=== PATIENT | female | born 1940 | race Caucasian/White ===

== ENCOUNTER 2021-02-05 13:03 | Emergency (ER) | payer OTHER, SELFPAY ==
--- NOTE | ~2021-02-05 | CT_ITS ---
EXAMINATION: CT cervical spine wo con DATE: 02/05/2021 13:48 INDICATION: Fall. Patient struck nose. Neck pain. TECHNIQUE: Computed tomography (CT) of the cervical spine was performed without intravenous contrast. Automated exposure control and iterative reconstruction technique were employed. Exam dose: 390.43 mGy-cm total exam DLP. COMPARISON: 02/04/2009 MRI cervical spine FINDINGS: The mastoid air cells are normally developed and aerated. There is mild reversal of lower cervical curvature. C1 and C2 are normally aligned and the odontoid process is intact.. No fracture or dislocation or loc ked facet. There is minimal anterolisthesis at C3-4 and C4-5. There is mild degenerative disc disease at C3-4. There is severe degenerative disease at C4-5, C5-6 and C6-7. Particularly prominent posterior spurrin g is noted at C5-6. Uncovertebral joint spurring is noted, particular C4-5 and C5-6. There is degenerative changes of the apophyseal joints, particularly in the upper and mid cervical ar ea. IMPRESSION: Extensive degenerative changes; no fracture or dislocation or locked facet is evident Reviewed, dictated and finalized at [facility]. Reviewed, dictated and finalized at location [facility]. IMPRESSION: Extensive degenerative changes; no fracture or dislocation or korina d facet is evident
--- NOTE | ~2021-02-05 | XR_ITS ---
XR wrist RT min 3V DATE: 02/05/2021 14:05 INDICATION: Fall. Right wrist pain, bruising TECHNIQUE: 4 views COMPARISON: None FINDINGS: Diffuse osteopenia. There is osteoarthritic change at the triscaphe and particularly the first carpometacarpal joint. No fracture or dislocation, periosteal reaction or bone destruction. IMPRESSION: Osteopenia Osteoarthritis No fracture or dislocation of the right wrist is detected Reviewed, dictated and finalized at location [facility].
--- NOTE | ~2021-02-05 | CT_ITS ---
EXAMINATION: CT brain wo con DATE: 02/05/2021 13:48 INDICATION: Patient fell and struck nose. Neck pain. Patient on blood thinners. TECHNIQUE: Computed tomography (CT) of the head was performed without intravenous contrast. The mA wa s adjusted according to patient size. Iterative reconstruction technique was employed. Exam dose: 60 5.33 mGy-cm total exam DLP. COMPARISON: 01/18/2009 MRI brain/brainstem FINDINGS: Bilateral carotid siphon internal carotid artery calcifications as well as prominent left v ertebral artery calcification. There is nonspecific diminished attenuation of the subcortical and periventricular cerebral white mat ter; diffusion diagnosis includes chronic small vessel ischemic changes as well as multiple sclerosis is reportedly present in this patient by clinical history. No intracranial mass lesion or hemorrhage or recent cerebrovascular accident is evident. No midline s hift or mass effect effect. No subdural or epidural hematoma is evident. No fracture or bone destruction of the cranial vault. The mastoid air cells and included paranasal si nuses are normally developed and aerated. IMPRESSION: No acute intracranial finding or skull fracture Cerebral atherosclerosis and chronic white matter changes Reviewed, dictated and finalized at [facility]. Reviewed, dictated and finalized at location [facility].
--- NOTE | ~2021-02-05 | XR_ITS ---
XR knee LT min 4V DATE: 02/05/2021 14:05 INDICATION: Fall. Generalized left knee pain, limited range of motion TECHNIQUE: 4 views including crosstable lateral COMPARISON: None FINDINGS: Diffuse osteopenia. Moderately severe loss of height at medial compartment joint space with mild periarticular spurring a t the medial and patellofemoral compartments. No fracture or dislocation, periosteal reaction or bone destruction. No radiopaque intra-articular lo ose body or chondrocalcinosis is evident. IMPRESSION: Osteopenia Osteoarthritis involving the medial and to a lesser extent patellofemoral compartments Reviewed, dictated and finalized at location [facility]. IMPRESSION: Osteopenia Osteoarthritis involving the medial and to a lesser extent patellofemoral joanne rtments
--- NOTE | ~2021-02-05 | XR_ITS ---
XR elbow RT min 3V DATE: 02/05/2021 14:04 INDICATION: Fall. Generalized right elbow pain, limited range of motion TECHNIQUE: 4 views COMPARISON: None FINDINGS: There is a linear intra-articular virtually nondisplaced radial head fracture. No other fra cture or dislocation is evident. Mild hemarthrosis. IMPRESSION: Radial head fracture Reviewed, dictated and finalized at location A. IMPRESSION: Radial head fracture
[2021-02-05 13:04] VITALS: BP 131/67; PULSE 73; RESP 16; TEMP 36.5; O2SAT 97
--- NOTE | 2021-02-05 15:09 | ED.FALL ---
HPI - Fall General Chief Complaint: Fall Stated Complaint: fall Time Seen by Provider: 02/05/21 13:07 Source: patient and family Mode of arrival: ambulatory History of Present Illness HPI Narrative: 80-year-old with a history of CAD on blood thinners here with complaints of fall. Patient states that she missed a step and fell face forward complains of a laceration to her nose, right elbow pain and left hand pain. She denies loss of consciousness. She denied any chest pain or shortness of breath or palpitation prior to the fall ,no history of loss of consciousness. MD complaint: fall Fall from: standing Fall witnessed: yes, by family Place fall occurred: home Loss of consciousness: none Symptoms prior to fall: none Context: tripped/slipped Location of injury - extremities: Left: hand and Right: elbow Severity: moderate Quality: aching Associated symptoms (after fall): neck pain Related Data Allergies Allergy/AdvReac Type Severity Reaction Status Date / Time codeine Allergy Unknown Unknown Verified 02/05/21 13:22 Sulfa (Sulfonamide Allergy Unknown Unknown Verified 02/05/21 13:22 Antibiotics) sulfanilamide Allergy Unknown Unknown Verified 02/05/21 13:22 Review of Systems Review of Systems: All systems reviewed & are unremarkable except as noted in HPI and below Constitutional: Constitutional: Reports no additional constitutional complaints Eyes: Eyes: Reports no additional eye complaints ENT: Reports as per HPI Cardiovascular: Cardiovascular: Reports no additional cardiovascular complaints Respiratory: Respiratory: Reports no additional respiratory complaints Gastrointestinal: Gastrointestinal: Reports no additional gastrointestinal complaints Musculoskeletal: Musculoskeletal: Reports as per HPI Integumentary/Breasts: Skin/Breast: Reports system reviewed and no additional complaints, except as docu Neurologic: Reports system reviewed and no additional complaints, except as documented PMFSH Family History Family History (Updated 06/04/14 @ 07:13 by DOCTOR UNKNOWN) Father Family history of congestive heart failure Other Depression Family history of alcoholism Family history of cardiovascular disease Family history of chronic obstructive pulmonary disease Family history of malignant neoplasm Hypertension Social History Social History Smoking status: Never smoker Smoking end date: 10/08/1967 Alcohol intake: never Gender identity (if verbalized by the patient): Female Exam Narrative: Exam Narrative: GENERAL: Well-appearing, well-nourished, and in no acute distress. HEAD: Normocephalic, atraumatic. EYES: PERRLA and EOMI. ENT: Nares clear, no rhinorrhea or epistaxis. Mucous membranes moist.has a skin avulsion the nose NECK: Supple. CHEST: Clear to auscultation. No respiratory distress. HEART: Regular rate and rhythm. No murmur heard. Normal peripheral pulses. ABDOMEN: Soft, nontender, nondistended, normal active bowel sounds. EXTREMITIES:pain in the right elbow and left hand has abrasions . No edema. SKIN: Warm, dry, no rash. NEURO: No focal deficits. Alert and oriented x3. PSYCH: Normal mood and affect. Course Course Emergency Course: Inform patient about her radiological findings. Patient states that she lives in [place] and would like to follow-up with her orthopedic doctor in [place]. However I have given on-call orthopedic doctor's name here for follow-up in case if she is unable to follow-up with her doctor. Advised fall precautions. Take pain medications as prescribed. Vital Signs Vital signs: Vital Signs Temperature 36.5 C 02/05/21 13:04 Pulse Rate 73 02/05/21 13:04 Respiratory Rate 16 02/05/21 13:04 Blood Pressure 131/67 02/05/21 13:04 Pulse Oximetry 97 02/05/21 13:04 Temperature 36.5 C 02/05/21 13:04 Pulse Rate 73 02/05/21 13:04 Respiratory Rate 16 02/05/21 13:04 Blood Pres
[2021-02-05] MEDS: HYDROcodone/acetaminophen (*CRX) 10-325 MG TABLET 1 TAB PO (15:53)
[2021-02-05 16:15] VITALS: BP 132/82; PULSE 80; RESP 20; O2SAT 99
== END 2021-02-05 16:17 | disposition home or self-care (01) ==
PROVIDERS: Emergency Provider Family Medicine; PCP Family Medicine
DX: S01.21XA Laceration without foreign body of nose, initial encounter (principal); S52.124A Nondisplaced fracture of head of right radius, initial encounter for closed fracture; S60.222A Contusion of left hand, initial encounter; M19.031 Primary osteoarthritis, right wrist; M85.88 Other specified disorders of bone density and structure, other site; M17.12 Unilateral primary osteoarthritis, left knee; I67.2 Cerebral atherosclerosis; W10.9XXA Fall (on) (from) unspecified stairs and steps, initial encounter
CPT/HCPCS: 29105; 70450; 72125; 73080; 73110; 73564; 99284; A4565; A9270

== ENCOUNTER 2021-08-18 09:45 | Outpatient (CLI) | payer OTHER, SELFPAY ==
[2021-08-18 11:12] LABS: Basophils Absolute Auto 0.1 K/mm3 (0.0-0.1); Basophils Percent Auto 0.8 % (0.2-1.2); Eosinophils Absolute Auto 0.2 K/mm3 (0-0.3); Eosinophils Percent Auto 2.5 % (0-4.4); Hematocrit 39.9 % (37.0-47.0); Immature Granulocyte Absolute 0.06 K/mm3 (0.00-0.031); Immature Granulocyte Percent A 0.8 % (0-0.5); Lymphocytes Absolute Auto 1.57 K/mm3 (0.9-3.2); Lymphocytes Percent Auto 21.5 % (18.3-44.2); Mean Corpuscular HGB Conc 32.6 g/dl (32-36); Mean Corpuscular Hemoglobin 28.2 pg (26-34); Mean Corpuscular Volume 86.6 fl (80-100); Mean Platelet Volume 9.9 fl (7.4-10.4); Monocytes Absolute Auto 0.5 K/mm3 (0.1-0.6); Monocytes Percent Auto 7.3 % (2.6-8.5); Neutrophils Absolute Auto 4.9 K/mm3 (1.3-6.7); Neutrophils Percent Auto 67.1 % (45.5-73.1); Platelet Count Result 189 k/mm3 (150-375); Red Blood Count 4.61 M/mm3 (4.2-5.4); Red Cell Distribution Width 13.5 % (11.5-14.5); White Blood Count 7.3 K/mm3 (4.5-10.0)
[2021-08-18 11:23] LABS: INR 1.2; Prothrombin Time 15.1 Seconds (11.1-14.7)
[2021-08-18 11:24] LABS: Partial Thromboplastin Time 51.9 SECONDS (22.3-36.8)
[2021-08-18 11:31] LABS: Alanine Aminotransferase 23 U/L (4-35); Albumin Level 4.6 g/dL (3.5-5.1); Alkaline Phosphatase 97 U/L (38-126); Anion Gap 8 mmol/L (8-16); Aspartate Amino Transferase 34 U/L (14-36); Bilirubin,Total 0.4 mg/dL (0.2-1.3); Blood Urea Nitrogen 19 mg/dL (7-17); Calcium 9.4 mg/dL (8.4-10.2); Carbon Dioxide 31 mmol/L (22-30); Chloride 101 mmol/L (98-107); Estimated Glomerular Filt Rate > 60; Glucose 101 mg/dL (65-110); Potassium 4.2 mmol/L (3.4-5.0); Sodium 140 mmol/L (137-145)
== END 2021-08-18 09:46 | disposition home or self-care (01) ==
LOC: ANHSURGERY 09:48
PROVIDERS: PCP Family Medicine; Visit Provider Urology
DX: N81.10 Cystocele, unspecified (principal); Z01.818 Encounter for other preprocedural examination
CPT/HCPCS: 36415; 80053; 85025; 85610; 85730; 86850; 86900; 86901; 87086

== ENCOUNTER 2021-08-29 00:23 | Day surgery (SDC) | payer OTHER, SELFPAY ==
[2021-08-18 09:55] VITALS: BMI 33.1
--- NOTE | 2021-08-18 10:36 | PC.NURSE ---
Report to the Outpatient Waiting Room, entrance under the green pavilion located off [facility], at time _0900 on date _08/29/21 . OR Time: _1100 . - You and your visitor will be asked a series of questions to screen for COVID 19 for your protection. - A mask is required within the hospital. - Only one visitor is allowed at this time. Patient visitors will be guided where to wait when not with patient. Preoperative COVID Testing Requirements: No COVID Test needed if: (proof is required; if not received patient will have Rapid Test prior to entry) - Patient has received COVID Vaccine at least 14 days prior to procedure date or - Patient has positive COVID test result within last 90 days of surgery date. COVID Test needed if above criteria is not met If not COVID vaccinated a COVID test must be conducted within 72 hours of surgery and patient is asked to isolate self from time of testing until procedure. You will go to the [facility] for your COVID testing. The [employer] [facility] site is located at the corner of [address] [facility]. You will only be called if COVID results are positive and your surgeon may reschedule your elective surgery date. Patients may have clear liquids (water, carbonated beverages, clear teas, apple juice) until 3 hours prior to surgery with a maximum of 20 ounces. - No food from midnight until time of surgery - Infants may have breast milk until 4 hours before surgery, infant formula 6 hours prior to surgery. - Children will be allowed to drink immediately following surgery. If applicable, please bring a bottle or sippy cup to assist with drinking. Juice, water, soda, and popsicles are readily available. For infants on formula, please bring formula the day of surgery. Pacifiers are allowed. Take the following medications with a SIP of water the morning of surgery: _INHALERS,FLUOXETINE Medications to discontinue per physician __PRADAXA 3 DAYS PRE OP PER DR DIALLO, ASPIRIN PT STATES 5 DAYS PRE OP PER DR ESCUDERO.ALL VITAMINS AND SUPPLEMENTS 3 DAYS PRE OP Date to take last dose Please no make-up, nail japanese, hairspray, perfume, deodorant, or body powder the day of surgery. No jewelry (including any body piercings) or valuables the day of surgery, leave them at home. Please take a shower or bath the night before, or the morning of, surgery with an antibacterial soap. Wear comfortable, loose fitting clothing. Children are encouraged to wear pajamas. - Jewelry must be removed prior to entering the operating room. Rings and piercings that are not removed may be cut off. - The hospital will not accept responsibility for valuables. - Please leave all valuables, including medications, at home the day of surgery. If you are going home after surgery, a licensed driver material handler must drive you home. - NO public transportation without another adult. - We recommend that an adult stay with you for 24 hours following discharge. - We also recommend that you do not drive, make important decision, drink alcoholic beverages, or take any drugs that were not prescribed by your health care provider for at least 24 hours after your discharge time. For Pediatric surgeries, we recommend two adults accompany the child home (only one inside the building at this time). Follow any additional instructions given to you from your surgeon. VERBAL instructions given to __PATIENT and asked if any additional questions and then verbalized understanding. Patient advised to call surgeon office or pre surgery nurse liaison [phone] if any additional questions.
[2021-08-18 10:50] VITALS: BP 120/66; PULSE 66; RESP 16; TEMP 36.9; O2SAT 97
--- NOTE | 2021-08-21 14:24 | PM.IMHP ---
H&P: HPI History of Present Illness Date/Time: 08/21/21 14:24 81 yo with Uterine prolpase. No RANJIT Chief Complaint: POP Review of Systems Review of Systems: All systems reviewed & are unremarkable except as noted in HPI and below PMFSH Past Medical History Medical History Arthritis Asthma Hesitancy History of CHF (congestive heart failure) History of hearing loss History of high blood pressure History of MRSA infection History of sleep apnea History of weight loss Hx of shortness of breath Multiple sclerosis Rheumatoid arthritis Sleep apnea Wears glasses Surgical History Surgical History History of appendectomy History of heart bypass surgery History of oophorectomy History of prior ablation treatment for Afib Family History Family History Father Family history of congestive heart failure Other Asthma Cancer of spine Depression Family history of alcoholism Family history of cardiovascular disease Family history of chronic obstructive pulmonary disease Family history of malignant neoplasm Hypertension Stomach cancer Social History Social History Smoking packs per day: 2.5 Smoking cigarettes per day: 50.0 Years smoked: 15 Smoking pack-years: 37.50 Smoking status: Former smoker Tobacco type: cigarettes Smoking end date: 10/08/69 Alcohol intake: never Substance use: never Gender identity (if verbalized by the patient): Female Spiritual care concerns: No Meds Home Medications and Allergies Home Medications Medication Instructions Recorded Confirmed Type hydrocodone-acetaminophen 1 tablet PO Q6H PRN #20 tablet 02/05/21 08/18/21 Rx albuterol sulfate 90 mcg/actuation 1 puff INHALATION Q4H PRN g 02/11/21 08/18/21 History aerosol inhaler budesonide-formoterol HFA 80 2 puff INHALATION Q12H 02/11/21 08/18/21 History mcg-4.5 mcg/actuation aerosol inhaler dabigatran etexilate 150 mg capsule 150 mg PO BID cap 02/11/21 08/18/21 History fluoxetine 40 mg capsule 80 mg PO DAILY 02/11/21 08/18/21 History furosemide 40 mg tablet 40 mg PO BID tablet 02/11/21 08/18/21 History montelukast 10 mg tablet 10 mg PO DAILY 02/11/21 08/18/21 History nitroglycerin 0.4 mg sublingual 0.4 mg SUBLINGUAL Q5M PRN 02/11/21 08/18/21 History tablet omeprazole 20 mg capsule,delayed 20 mg PO DAILY 02/11/21 08/18/21 History release pramipexole 1 mg tablet 1 mg PO BID 02/11/21 08/18/21 History pravastatin 20 mg tablet 20 mg PO HS 02/11/21 08/18/21 History aspirin 325 mg PO DAILY 08/18/21 08/18/21 History multivitamin,do-gyjr-ogzgylgu 1 tablet PO DAILY 08/18/21 08/18/21 History [Complete Multivitamin] potassium chloride 20 meq PO DAILY 08/18/21 08/18/21 History Allergies Allergy/AdvReac Type Severity Reaction Status Date / Time codeine Allergy Unknown Unknown Verified 08/18/21 10:01 Sulfa (Sulfonamide Allergy Unknown Unknown Verified 08/18/21 10:01 Antibiotics) sulfanilamide Allergy Unknown Unknown Verified 08/18/21 10:01 adhesive tape AdvReac Unknown BLISTERS Verified 08/18/21 10:01 spira Allergy Unknown unknown Uncoded 08/18/21 10:01 Exam Narrative: cystocele +3. [facility] at 0 Assessment and Plan Assessment and plan (1) Uterine prolapse: Code(s): N81.4 - Uterovaginal prolapse, unspecified Status: Acute Assessment and Plan: Robotic sacral colpopexy
--- NOTE | 2021-08-29 07:07 | WPDHPUPDATE1 ---
History and Physical Update Update Date/Time: 08/29/21 07:07 History and Physical has been reviewed, including an updated exam of the patient. There are NO changes in the patient's condition. Risks, benefits, and alternatives have been discussed and questions answered. Patient agrees to proceed with procedure.
[2021-08-29] MEDS: ACETAMINOPHEN 500 MG TABLET 1000 MG PO (09:13)
--- NOTE | 2021-08-29 09:20 | WPDANESEPPF ---
Anes - Initial Pre Proc Eval Procedure: Operation Date: 08/29/21 11:00 Proposed Procedures p Robotic Sacrocolpopexy, Urethral Sling - Jose D Coello MD s Robotic Assisted Supracervical Hysterectomy with Bilateral Salpingo-Oophorectomy - Quinten Kevin MD Date/Time: 08/29/21 09:20 Surgeon: Jose D Coello MD Pre Op Diagnosis: Incomplete uterovaginal Prolapse, Stress Incont Patient Data Age: 81 Gender: F Height: 1.63 m Weight: 87 kg Last Vital Signs Temp 36.9 C 08/18/21 10:50 Pulse 66 08/18/21 10:50 Resp 16 08/18/21 10:50 BP 120/66 08/18/21 10:50 Pulse Ox 97 08/18/21 10:50 Allergies Allergy/AdvReac Type Severity Reaction Status Date / Time codeine Allergy Unknown Unknown Verified 08/29/21 09:06 Sulfa (Sulfonamide Allergy Unknown Unknown Verified 08/29/21 09:06 Antibiotics) sulfanilamide Allergy Unknown Unknown Verified 08/29/21 09:06 adhesive tape AdvReac Mild BLISTERS Verified 08/29/21 09:06 spira Allergy Unknown unknown Uncoded 08/29/21 09:06 Home Medications Medication Instructions Recorded Confirmed Type hydrocodone-acetaminophen 1 tablet PO Q6H PRN #20 tablet 02/05/21 08/18/21 Rx albuterol sulfate 90 mcg/actuation 1 puff INHALATION Q4H PRN g 02/11/21 08/18/21 History aerosol inhaler budesonide-formoterol HFA 80 2 puff INHALATION Q12H 02/11/21 08/29/21 History mcg-4.5 mcg/actuation aerosol inhaler dabigatran etexilate 150 mg capsule 150 mg PO BID cap 02/11/21 08/29/21 History fluoxetine 40 mg capsule 80 mg PO DAILY 02/11/21 08/29/21 History furosemide 40 mg tablet 40 mg PO BID tablet 02/11/21 08/29/21 History montelukast 10 mg tablet 10 mg PO DAILY 02/11/21 08/29/21 History nitroglycerin 0.4 mg sublingual 0.4 mg SUBLINGUAL Q5M PRN 02/11/21 08/29/21 History tablet omeprazole 20 mg capsule,delayed 20 mg PO DAILY 02/11/21 08/29/21 History release pramipexole 1 mg tablet 1 mg PO BID 02/11/21 08/29/21 History pravastatin 20 mg tablet 20 mg PO HS 02/11/21 08/29/21 History aspirin 325 mg PO DAILY 08/18/21 08/29/21 History multivitamin,he-zxin-cuphjjxx 1 tablet PO DAILY 08/18/21 08/29/21 History [Complete Multivitamin] potassium chloride 20 meq PO DAILY 08/18/21 08/29/21 History Patient hx anesthesia problems: none Family hx anesthesia problems: none Results Review: All pre-operative results and documents have been reviewed as part of the pre-operative evaluation. [facility] Past Medical History Medical History Arthritis Asthma Hesitancy History of CHF (congestive heart failure) History of hearing loss History of high blood pressure History of MRSA infection History of sleep apnea History of weight loss Hx of shortness of breath Multiple sclerosis Rheumatoid arthritis Sleep apnea Wears glasses Surgical History Surgical History History of appendectomy History of heart bypass surgery History of oophorectomy History of prior ablation treatment for Afib Family History Family History Father Family history of congestive heart failure Other Asthma Cancer of spine Depression Family history of alcoholism Family history of cardiovascular disease Family history of chronic obstructive pulmonary disease Family history of malignant neoplasm Hypertension Stomach cancer Social History Social History Smoking packs per day: 2.5 Smoking cigarettes per day: 50.0 Years smoked: 15 Smoking pack-years: 37.50 Smoking status: Former smoker Tobacco type: cigarettes Smoking end date: 10/08/69 Alcohol intake: never Substance use: never Living arrangements: alone Gender identity (if verbalized by the patient): Female Spiritual care concerns: No Anes - Eval Final PreProcedure Day of Procedure
[2021-08-29] MEDS: LACTATED RINGERS 1,000 ML 30 ML IV CONT (09:38)
[2021-08-29] MEDS: KETOROLAC 15 MG/ML VIAL (*BKC) IV PUSH (09:40)
[2021-08-29 09:42] VITALS: BP 131/55; PULSE 77; RESP 16; TEMP 36.3; O2SAT 97
[2021-08-29 09:52] LABS: INR 1.1; Prothrombin Time 14.2 Seconds (11.1-14.7)
[2021-08-29 09:53] LABS: Partial Thromboplastin Time 43.9 SECONDS (22.3-36.8)
--- NOTE | 2021-08-29 10:00 | ECG_ITS ---
Measurements Intervals [place] Rate: 71 P: 63 OK: 149 QRS: 126 QRSD: 100 T: 73 QT: 441 QTc: 482 Interpretive Statements SINUS RHYTHM RIGHT AXIS DEVIATION BORDERLINE ECG Electronically Signed On 08-29-2021 10:16:11 CELL EFFICIENCY SUPERVISOR by Jose Bassett D.O.
--- NOTE | 2021-08-29 10:11 | SUR.PREOP ---
1000 Patient requested to take one of her NTG tabs. Says has mid sternal ache. No dyspnea. Pulse regular, placed on monitor SR with PAC. Dr Sauceda informed and saw patient. 1010 tech her to do EKG.
[2021-08-29 10:23] VITALS: BP 135/67; PULSE 71; RESP 16; O2SAT 96
--- NOTE | 2021-08-29 10:24 | SUR.PREOP ---
Patient took NTG per Dr Muse instruction and says it helped. Denies pain, says it was just mid sternal pressure. Is very upset at getting surgery delayed.
--- NOTE | 2021-08-29 11:06 | WPDHPUPDATE1 ---
History and Physical Update Update Date/Time: 08/29/21 11:06 81 y/o female here for scheduled surgery. However, she had chest pain and an abnormal ECG, so the surgery has been cancelled for today. She will see her pulling machine operator and we will reschedule this elective surgery.
--- NOTE | 2021-08-29 11:09 | SUR.PREOP ---
Patient says discomfort in chest is gone. Dressed and awaiting discharge orders.
--- NOTE | 2021-09-05 14:53 | W.PM.PROC2 ---
Procedure Note - Detailed Date of Procedure 09/05/21 Pre-op Diagnosis Incomplete uterovaginal Prolapse, Stress Incont Surgery canceled due to chest pain in pre-op area Post-op Diagnosis same Procedure Performed no surgery performed Surgeon Jose D Coello MD Description of Procedure surgery canceled
== END 2021-08-29 11:21 | disposition home or self-care (01) ==
PROVIDERS: Obstetrics & Gynecology; PCP Family Medicine; Visit Provider Urology
PROC: (CPT 57425; principal; 2021-08-29 11:00)
PROC: 0UT94ZZ Resection of Uterus, Percutaneous Endoscopic Approach (ICD-10-PCS; CPT 57425; 2021-08-29 11:00)
DX: N81.2 Incomplete uterovaginal prolapse (principal); R07.9 Chest pain, unspecified; Z53.09 Procedure and treatment not carried out because of other contraindication
CPT/HCPCS: 36415; 80053; 85025; 85610; 85730; 86850; 86900; 86901; 87086; 93005; 99213; A9270; C9290; G0463; J1170; J1885; J3010; J7030; J7120

== ENCOUNTER 2021-11-07 13:43 | Outpatient (CLI) | payer OTHER, SELFPAY ==
[2021-11-07 14:46] LABS: Basophils Absolute Auto 0.1 K/mm3 (0.0-0.1); Basophils Percent Auto 0.7 % (0.2-1.2); Eosinophils Absolute Auto 0.2 K/mm3 (0-0.3); Eosinophils Percent Auto 2.5 % (0-4.4); Hematocrit 41.3 % (37.0-47.0); Hemoglobin 13.2 g/dL (12.0-15.0); Immature Granulocyte Percent A 1.3 % (0-0.5); Lymphocytes Absolute Auto 1.54 K/mm3 (0.9-3.2); Lymphocytes Percent Auto 20.3 % (18.3-44.2); Mean Corpuscular Hemoglobin 27.5 pg (26-34); Mean Platelet Volume 9.5 fl (7.4-10.4); Monocytes Absolute Auto 0.5 K/mm3 (0.1-0.6); Monocytes Percent Auto 7.1 % (2.6-8.5); Neutrophils Absolute Auto 5.2 K/mm3 (1.3-6.7); Neutrophils Percent Auto 68.1 % (45.5-73.1); Platelet Count Result 182 k/mm3 (150-375); Red Cell Distribution Width 13.6 % (11.5-14.5); White Blood Count 7.6 K/mm3 (4.5-10.0)
[2021-11-07 14:55] LABS: INR 1.1; Prothrombin Time 14.1 Seconds (11.1-14.7)
[2021-11-07 14:56] LABS: Partial Thromboplastin Time 42.9 SECONDS (22.3-36.8)
[2021-11-07 14:57] LABS: Alanine Aminotransferase 20 U/L (4-35); Albumin Level 4.4 g/dL (3.5-5.1); Alkaline Phosphatase 114 U/L (38-126); Anion Gap 6 mmol/L (8-16); Aspartate Amino Transferase 30 U/L (14-36); Bilirubin,Total 0.4 mg/dL (0.2-1.3); Blood Urea Nitrogen 16 mg/dL (7-17); Calcium 9.2 mg/dL (8.4-10.2); Carbon Dioxide 27 mmol/L (22-30); Chloride 103 mmol/L (98-107); Estimated Glomerular Filt Rate > 60; Glucose 117 mg/dL (65-110); Potassium 3.9 mmol/L (3.4-5.0); Sodium 136 mmol/L (137-145)
== END 2021-11-07 13:44 | disposition home or self-care (01) ==
LOC: ANHSURGERY 13:45
PROVIDERS: PCP Family Medicine; Visit Provider Urology
DX: N81.4 Uterovaginal prolapse, unspecified (principal); Z01.818 Encounter for other preprocedural examination
CPT/HCPCS: 36415; 80053; 85025; 85610; 85730; 87086; 87088

== ENCOUNTER 2022-02-07 11:31 | Outpatient (CLI) | payer OTHER, SELFPAY ==
[2022-02-07 13:03] LABS: Basophils Absolute Auto 0.1 K/mm3 (0.0-0.1); Basophils Percent Auto 1.1 % (0.2-1.2); Eosinophils Absolute Auto 0.2 K/mm3 (0-0.3); Eosinophils Percent Auto 2.3 % (0-4.4); Hematocrit 39.7 % (37.0-47.0); Hemoglobin 12.5 g/dL (12.0-15.0); Immature Granulocyte Absolute 0.03 K/mm3 (0.00-0.031); Immature Granulocyte Percent A 0.5 % (0-0.5); Lymphocytes Absolute Auto 1.66 K/mm3 (0.9-3.2); Lymphocytes Percent Auto 25.5 % (18.3-44.2); Mean Corpuscular HGB Conc 31.5 g/dl (32-36); Mean Corpuscular Hemoglobin 27.1 pg (26-34); Mean Corpuscular Volume 86.1 fl (80-100); Mean Platelet Volume 9.8 fl (7.4-10.4); Monocytes Absolute Auto 0.5 K/mm3 (0.1-0.6); Monocytes Percent Auto 7.2 % (2.6-8.5); Neutrophils Absolute Auto 4.1 K/mm3 (1.3-6.7); Neutrophils Percent Auto 63.4 % (45.5-73.1); Platelet Count Result 180 k/mm3 (150-375); Red Blood Count 4.61 M/mm3 (4.2-5.4); Red Cell Distribution Width 14.2 % (11.5-14.5); White Blood Count 6.5 K/mm3 (4.5-10.0)
[2022-02-07 13:15] LABS: Alanine Aminotransferase 20 U/L (4-35); Albumin Level 4.8 g/dL (3.5-5.1); Alkaline Phosphatase 103 U/L (38-126); Anion Gap 11 mmol/L (8-16); Aspartate Amino Transferase 33 U/L (14-36); Bilirubin,Total 0.4 mg/dL (0.2-1.3); Blood Urea Nitrogen 18 mg/dL (7-17); Calcium 8.8 mg/dL (8.4-10.2); Carbon Dioxide 26 mmol/L (22-30); Chloride 101 mmol/L (98-107); Estimated Glomerular Filt Rate > 60; Glucose 91 mg/dL (65-110); Sodium 138 mmol/L (137-145)
[2022-02-07 13:35] LABS: INR 1.2; Prothrombin Time 14.9 Seconds (11.1-14.7)
[2022-02-07 13:36] LABS: Partial Thromboplastin Time 42.8 SECONDS (22.3-36.8)
== END 2022-02-07 11:32 | disposition home or self-care (01) ==
LOC: ANHSURGERY 11:37
PROVIDERS: PCP Family Medicine; Visit Provider Urology
DX: Z01.818 Encounter for other preprocedural examination (principal); N81.4 Uterovaginal prolapse, unspecified
CPT/HCPCS: 36415; 80053; 85025; 85610; 85730; 86850; 86900; 86901; 87086

== ENCOUNTER 2022-02-13 02:26 | Day surgery (SDC) | payer OTHER, SELFPAY ==
--- NOTE | 2021-11-07 13:46 | PC.NURSE ---
Report to the Outpatient Waiting Room, entrance under the green pavilion located off [facility], at time _0600_ on date _11/21/21_. OR Time: __0730__. - You and your visitor will be asked a series of questions to screen for COVID 19 for your protection. - A mask is required within the hospital. - NO visitors are allowed at this time. Preoperative COVID Testing Requirements: No COVID Test needed if: (proof is required; if not received patient will have Rapid Test prior to entry) - Patient has received COVID Vaccine at least 14 days prior to procedure date or - Patient has positive COVID test result within last 90 days of surgery date. COVID Test needed if above criteria is not met If not COVID vaccinated a COVID test must be conducted within 72 hours of surgery and patient is asked to isolate self from time of testing until procedure. You will go to the [facility] for your COVID testing. The [facility] is located at the corner of [address] from [facility]. You will only be called if COVID results are positive and your surgeon may reschedule your elective surgery date. Patients may have clear liquids (water, carbonated beverages, clear teas, apple juice) until 3 hours prior to surgery with a maximum of 20 ounces. (0430 AM) - No food from midnight until time of surgery Take the following medications with a SIP of water the morning of surgery: _SYMBICORT, PROZAC, & ALBUTEROL INHALER, NITRO IF NEEDED_ Medications to discontinue per DR. ESCUDERO - ASPIRIN 5 DAYS PRIOR, LAST DOSE TO BE ON 11/15/21. DR. DIALLO - PRADAXA 3 DAYS PRIOR, LAST DOSE TO BE ON 11/17/21__ Please no make-up, nail malay, hairspray, perfume, deodorant, or body powder the day of surgery. No jewelry (including any body piercings) or valuables the day of surgery, leave them at home. Please take a shower or bath the night before, or the morning of, surgery with an antibacterial soap. Wear comfortable, loose fitting clothing. Children are encouraged to wear pajamas. - Jewelry must be removed prior to entering the operating room. Rings and piercings that are not removed may be cut off. - The hospital will not accept responsibility for valuables. - Please leave all valuables, including medications, at home the day of surgery. If you are going home after surgery, a licensed lumber stacker driver must drive you home. - NO public transportation without another adult. - We recommend that an adult stay with you for 24 hours following discharge. - We also recommend that you do not drive, make important decision, drink alcoholic beverages, or take any drugs that were not prescribed by your health care provider for at least 24 hours after your discharge time. Follow any additional instructions given to you from your surgeon. Telephone instructions given to and asked if any additional questions and then verbalized understanding. Patient advised to call surgeon office or pre surgery nurse liaison [phone] if any additional questions.
[2021-11-07 14:05] VITALS: BP 116/70; PULSE 92; RESP 20; TEMP 37.4; O2SAT 94; BMI 32.7
--- NOTE | 2021-11-13 13:17 | PM.IMHP ---
H&P: HPI History of Present Illness Date/Time: 11/13/21 13:17 uterine prolapse. No yimi Chief Complaint: POP Review of Systems Review of Systems: All systems reviewed & are unremarkable except as noted in HPI and below PMFSH Past Medical History Medical History Arthritis Asthma Hesitancy History of CHF (congestive heart failure) History of hearing loss History of high blood pressure History of MRSA infection History of sleep apnea History of weight loss Hx of shortness of breath Multiple sclerosis Rheumatoid arthritis Sleep apnea Wears glasses Surgical History Surgical History History of appendectomy History of heart bypass surgery History of oophorectomy History of prior ablation treatment for Afib Family History Family History Father Family history of congestive heart failure Other Asthma Cancer of spine Depression Family history of alcoholism Family history of cardiovascular disease Family history of chronic obstructive pulmonary disease Family history of malignant neoplasm Hypertension Stomach cancer Social History Social History Smoking packs per day: 2.5 Smoking cigarettes per day: 50.0 Years smoked: 15 Smoking pack-years: 37.50 Smoking status: Former smoker Tobacco type: cigarettes Second hand tobacco smoke exposure: No Smoking end date: 10/08/69 Alcohol intake: never Substance use: never Substance use type: does not use Gender identity (if verbalized by the patient): Female Spiritual care concerns: No Meds Home Medications and Allergies Home Medications Medication Instructions Recorded Confirmed Type albuterol sulfate 90 mcg/actuation 1 puff INHALATION Q4H PRN g 02/11/21 11/07/21 History aerosol inhaler budesonide-formoterol HFA 80 2 puff INHALATION Q12H 02/11/21 11/07/21 History mcg-4.5 mcg/actuation aerosol inhaler dabigatran etexilate 150 mg capsule 150 mg PO BID cap 02/11/21 11/07/21 History fluoxetine 40 mg capsule 80 mg PO QAM 02/11/21 11/07/21 History furosemide 40 mg tablet 40 mg PO BID tablet 02/11/21 11/07/21 History montelukast 10 mg tablet 10 mg PO HS 02/11/21 11/07/21 History nitroglycerin 0.4 mg sublingual 0.4 mg SUBLINGUAL Q5M PRN 02/11/21 11/07/21 History tablet omeprazole 20 mg capsule,delayed 20 mg PO QAM 02/11/21 11/07/21 History release pramipexole 1 mg tablet See Rx Instructions .ROUTE .COMPLEX 02/11/21 11/07/21 History pravastatin 20 mg tablet 20 mg PO HS 02/11/21 11/07/21 History aspirin 325 mg PO DAILY 08/18/21 11/07/21 History potassium chloride 20 meq PO QAM 08/18/21 11/07/21 History Allergies Allergy/AdvReac Type Severity Reaction Status Date / Time codeine Allergy Unknown Unknown- Verified 11/07/21 13:55 A CHILD Sulfa (Sulfonamide Allergy Unknown N/V Verified 11/07/21 13:55 Antibiotics) sulfanilamide Allergy Unknown N/V Verified 11/07/21 13:55 adhesive tape AdvReac Mild BLISTERS Verified 11/07/21 13:55 spira Allergy Unknown unknown-SEE Uncoded 11/07/21 13:55 COMMENT Exam Narrative: anterior wall +3 [place] at 0 Assessment and Plan Assessment and plan (1) Uterine prolapse: Code(s): N81.4 - Uterovaginal prolapse, unspecified Status: Acute Assessment and Plan: Robotic Sacral Colpopexy
[2022-02-07 11:58] VITALS: BMI 33.3
--- NOTE | 2022-02-07 12:18 | PC.NURSE ---
Report to the Outpatient Waiting Room, entrance under the green pavilion located off [facility], at time __6:00AM on date __02/13/22 . OR Time: __7:30AM . - You and your visitor will be asked a series of questions to screen for COVID 19 for your protection. - Only one visitor is allowed at this time. - The patient visitor is requested to leave or wait in car when not with patient. - A mask is required within the hospital. Patients may have clear liquids (water, carbonated beverages, clear teas, apple juice) until 3 hours prior to surgery with a maximum of 20 ounces. - No food from midnight until time of surgery - Infants may have breast milk until 4 hours before surgery, formula 6 hours prior to surgery. - Children will be allowed to drink immediately following surgery. If applicable, please bring a bottle or sippy cup to assist with drinking. Juice, water, soda, and popsicles are readily available. For infants on formula, please bring formula the day of surgery. Pacifiers are allowed. Take the following medications with a SIP of water the morning of surgery: ___SYMBICORT INHALER, ALBUTEROL INHALER NEEDED, FLUOXETINE Medications to discontinue per physician ____HOLD ASPIRIN 7 DAYS PRE-OP-LAST DOSE 02/06/22, PRADAXA 3 DAYS PRE-OP- LAST DOSE 02/09/22 Please no make-up, nail uzbek, hairspray, perfume, deodorant, or body powder the day of surgery. No jewelry (including any body piercings) or valuables the day of surgery, leave them at home. Please take a shower or bath the night before, or the morning of, surgery with an antibacterial soap. Wear comfortable, loose fitting clothing. Children are encouraged to wear pajamas. - Jewelry must be removed prior to entering the operating room. Rings and piercings that are not removed may be cut off. - The hospital will not accept responsibility for valuables. - Please leave all valuables, including medications, at home the day of surgery. If you are going home after surgery, a licensed auto driver must drive you home. - NO public transportation without another adult. - We recommend that an adult stay with you for 24 hours following discharge. - We also recommend that you do not drive, make important decision, drink alcoholic beverages, or take any drugs that were not prescribed by your health care provider for at least 24 hours after your discharge time. For Pediatric surgeries, we recommend two adults accompany the child home (only one inside the building at this time). Follow any additional instructions given to you from your surgeon. If you or anyone in your household have experienced Covid symptoms in the past week, please notify your surgeon or the nurse liaison at the phone number below for possible testing. Telephone instructions given to __PATIENT AND FRIEND and asked if any additional questions and then verbalized understanding. Patient advised to call surgeon office or pre surgery nurse liaison [phone] if any additional questions.
--- NOTE | 2022-02-07 12:25 | PC.NURSE ---
Report to the Outpatient Waiting Room, entrance under the green pavilion located off [facility], at time __6:00AM on date __02/13/22 . OR Time: ___7:30AM . - You and your visitor will be asked a series of questions to screen for COVID 19 for your protection. - Only one visitor is allowed at this time. - The patient visitor is requested to leave or wait in car when not with patient. - A mask is required within the hospital. Patients may have clear liquids (water, carbonated beverages, clear teas, apple juice) until 3 hours prior to surgery with a maximum of 20 ounces. - No food from midnight until time of surgery - Infants may have breast milk until 4 hours before surgery, formula 6 hours prior to surgery. - Children will be allowed to drink immediately following surgery. If applicable, please bring a bottle or sippy cup to assist with drinking. Juice, water, soda, and popsicles are readily available. For infants on formula, please bring formula the day of surgery. Pacifiers are allowed. Take the following medications with a SIP of water the morning of surgery: __SYBMICORT INHALER, ALBUTEROL IN HALER NEEDED, FLUOXETINE Medications to discontinue per physician ____HOLD ASPIRIN 7 DAYS PRE-OP- LAST DOSE 02/06/22, PRADAXA 3 DAYS PRE-OP- LAST DOSE 02/09/22 Please no make-up, nail portuguese, hairspray, perfume, deodorant, or body powder the day of surgery. No jewelry (including any body piercings) or valuables the day of surgery, leave them at home. Please take a shower or bath the night before, or the morning of, surgery with an antibacterial soap. Wear comfortable, loose fitting clothing. Children are encouraged to wear pajamas. - Jewelry must be removed prior to entering the operating room. Rings and piercings that are not removed may be cut off. - The hospital will not accept responsibility for valuables. - Please leave all valuables, including medications, at home the day of surgery. If you are going home after surgery, a licensed forklift driver must drive you home. - NO public transportation without another adult. - We recommend that an adult stay with you for 24 hours following discharge. - We also recommend that you do not drive, make important decision, drink alcoholic beverages, or take any drugs that were not prescribed by your health care provider for at least 24 hours after your discharge time. For Pediatric surgeries, we recommend two adults accompany the child home (only one inside the building at this time). Follow any additional instructions given to you from your surgeon. If you or anyone in your household have experienced Covid symptoms in the past week, please notify your surgeon or the nurse liaison at the phone number below for possible testing. Telephone instructions given to _PATIENT & FRIEND and asked if any additional questions and then verbalized understanding. Patient advised to call surgeon office or pre surgery nurse liaison [phone] if any additional questions.
[2022-02-07 12:42] VITALS: BP 126/73; PULSE 68; RESP 16; TEMP 36.6; O2SAT 95
--- NOTE | 2022-02-10 07:49 | PM.IMHP ---
H&P: HPI History of Present Illness Date/Time: 02/10/22 07:49 81-year-old with uterine prolapse without stress incontinence. She is here today for a surgical procedure. She has been cleared by her drawing machine operator Chief Complaint: Uterine prolapse Review of Systems Review of Systems: All systems reviewed & are unremarkable except as noted in HPI and below PMFSH Past Medical History Medical History Arthritis Asthma Hesitancy History of CHF (congestive heart failure) History of hearing loss History of high blood pressure History of MRSA infection History of sleep apnea History of weight loss Hx of shortness of breath Multiple sclerosis Rheumatoid arthritis Sleep apnea Wears glasses Surgical History Surgical History History of appendectomy History of heart bypass surgery History of oophorectomy History of prior ablation treatment for Afib Family History Family History Father Family history of congestive heart failure Other Asthma Cancer of spine Depression Family history of alcoholism Family history of cardiovascular disease Family history of chronic obstructive pulmonary disease Family history of malignant neoplasm Hypertension Stomach cancer Social History Social History Smoking packs per day: 2.5 Smoking cigarettes per day: 50.0 Years smoked: 15 Smoking pack-years: 37.50 Smoking status: Former smoker Tobacco type: cigarettes Second hand tobacco smoke exposure: No Smoking end date: 04/07/1960 Alcohol intake: never Substance use: never Substance use type: does not use Gender identity (if verbalized by the patient): Female Spiritual care concerns: No Meds Home Medications and Allergies Home Medications Medication Instructions Recorded Confirmed Type albuterol sulfate 90 mcg/actuation 1 puff INHALATION Q4H PRN g 02/11/21 02/07/22 History aerosol inhaler budesonide-formoterol HFA 80 2 puff INHALATION Q12H 02/11/21 02/07/22 History mcg-4.5 mcg/actuation aerosol inhaler dabigatran etexilate 150 mg capsule 150 mg PO BID cap 02/11/21 02/07/22 History fluoxetine 40 mg capsule 80 mg PO QAM 02/11/21 02/07/22 History furosemide 40 mg tablet 40 mg PO BID tablet 02/11/21 02/07/22 History montelukast 10 mg tablet 10 mg PO HS 02/11/21 02/07/22 History nitroglycerin 0.4 mg sublingual 0.4 mg SUBLINGUAL Q5M PRN 02/11/21 02/07/22 History tablet omeprazole 20 mg capsule,delayed 20 mg PO QAM 02/11/21 02/07/22 History release pramipexole 1 mg tablet 2 mg PO BID 02/11/21 02/07/22 History pravastatin 20 mg tablet 20 mg PO HS 02/11/21 02/07/22 History aspirin 325 mg PO DAILY 08/18/21 02/07/22 History potassium chloride 20 meq PO BID 08/18/21 02/07/22 History diclofenac sodium 1 ea TOPICAL BID PRN 02/07/22 02/07/22 History Allergies Allergy/AdvReac Type Severity Reaction Status Date / Time codeine Allergy Unknown Unknown- Verified 02/07/22 11:56 A CHILD Sulfa (Sulfonamide Allergy Unknown N/V Verified 02/07/22 11:56 Antibiotics) sulfanilamide Allergy Unknown N/V Verified 02/07/22 11:56 adhesive tape AdvReac Mild BLISTERS Verified 02/07/22 11:56 spironolactone AdvReac hair loss Verified 02/07/22 11:56 Exam Narrative: No acute distress Alert and oriented x3 Normal breathing Cystocele a +3. [place] at 0. Assessment and Plan Assessment and plan (1) Uterine prolapse: Code(s): N81.4 - Uterovaginal prolapse, unspecified Status: Acute Assessment and Plan: Robotic sacral colpopexy
[2022-02-13] VITALS (8 sets, daily range): BP systolic 113–154; BP diastolic 61–74; PULSE 70–82; RESP 15–20; TEMP 36.3–37.3; O2SAT 95–100
[2022-02-13] MEDS: LACTATED RINGERS 1,000 ML 30 ML IV CONT ×2 (06:57→11:46)
--- NOTE | 2022-02-13 07:15 | WPDANESEPPF ---
Anes - Initial Pre Proc Eval Procedure: Operation Date: 02/13/22 07:30 Proposed Procedures p Robotic Sacrocolpopexy with Urethral Sling - Jose D Coello MD s Robotic Assisted Supracervical Hysterectomy Bilateral Salpingo-Oophorectomy - Quinten Kevin MD Date/Time: 02/13/22 07:15 Surgeon: Jose D Coello MD Pre Op Diagnosis: incomp uterovaginal prolapse, stress incont Patient Data Age: 81 Gender: F Height: 1.63 m Weight: 87.9 kg Last Vital Signs Temp 36.6 C 02/07/22 12:42 Pulse 68 02/07/22 12:42 Resp 16 02/07/22 12:42 BP 126/73 02/07/22 12:42 Pulse Ox 95 02/07/22 12:42 Allergies Allergy/AdvReac Type Severity Reaction Status Date / Time codeine Allergy Unknown Unknown- Verified 02/07/22 11:56 A CHILD Sulfa (Sulfonamide Allergy Unknown N/V Verified 02/07/22 11:56 Antibiotics) sulfanilamide Allergy Unknown N/V Verified 02/07/22 11:56 adhesive tape AdvReac Mild BLISTERS Verified 02/07/22 11:56 spironolactone AdvReac hair loss Verified 02/07/22 11:56 Home Medications Medication Instructions Recorded Confirmed Type albuterol sulfate 90 mcg/actuation 1 puff INHALATION Q4H PRN g 02/11/21 02/13/22 History aerosol inhaler budesonide-formoterol HFA 80 2 puff INHALATION Q12H 02/11/21 02/13/22 History mcg-4.5 mcg/actuation aerosol inhaler dabigatran etexilate 150 mg capsule 150 mg PO BID cap 02/11/21 02/13/22 History fluoxetine 40 mg capsule 80 mg PO QAM 02/11/21 02/13/22 History furosemide 40 mg tablet 40 mg PO BID tablet 02/11/21 02/13/22 History montelukast 10 mg tablet 10 mg PO HS 02/11/21 02/13/22 History nitroglycerin 0.4 mg sublingual 0.4 mg SUBLINGUAL Q5M PRN 02/11/21 02/13/22 History tablet omeprazole 20 mg capsule,delayed 20 mg PO QAM 02/11/21 02/13/22 History release pramipexole 1 mg tablet 2 mg PO BID 02/11/21 02/13/22 History pravastatin 20 mg tablet 20 mg PO HS 02/11/21 02/13/22 History aspirin 325 mg PO DAILY 08/18/21 02/13/22 History potassium chloride 20 meq PO BID 08/18/21 02/13/22 History diclofenac sodium 1 ea TOPICAL BID PRN 02/07/22 02/13/22 History Laboratory Tests 02/13/22 06:54 PT Pending INR Pending APTT Pending Patient hx anesthesia problems: none Family hx anesthesia problems: none Results Review: All pre-operative results and documents have been reviewed as part of the pre-operative evaluation. [facility] Past Medical History Medical History Arthritis Asthma Hesitancy History of CHF (congestive heart failure) History of hearing loss History of high blood pressure History of MRSA infection History of sleep apnea History of weight loss Hx of shortness of breath Multiple sclerosis Rheumatoid arthritis Sleep apnea Wears glasses Surgical History Surgical History History of appendectomy History of heart bypass surgery History of oophorectomy History of prior ablation treatment for Afib Family History Family History Father Family history of congestive heart failure Other Asthma Cancer of spine Depression Family history of alcoholism Family history of cardiovascular disease Family history of chronic obstructive pulmonary disease Family history of malignant neoplasm Hypertension Stomach cancer Social History Social History Smoking packs per day: 2.5 Smoking cigarettes per day: 50.0 Years smoked: 15 Smoking pack-years: 37.50 Smoking status: Former smoker Tobacco type: cigarettes Second hand tobacco smoke exposure: No Smoking end date: 04/07/1960 Alcohol intake: never Substance use: never Substance use type: does not use Living arrangements: alone Gender identity (if verbalized by the patient): Female Spiritual care concerns: No
--- NOTE | 2022-02-13 07:18 | PM.IMHP ---
H&P: HPI History of Present Illness Date/Time: 02/13/22 07:18 81 y/o with pelvic organ prolapse, symptomatic. Tried a pessary, but this was unsatisfactory. Chief Complaint: Prolapse Review of Systems Review of Systems: All systems reviewed & are unremarkable except as noted in HPI and below PMFSH Past Medical History Medical History Arthritis Asthma Hesitancy History of CHF (congestive heart failure) History of hearing loss History of high blood pressure History of MRSA infection History of sleep apnea History of weight loss Hx of shortness of breath Multiple sclerosis Rheumatoid arthritis Sleep apnea Wears glasses Surgical History Surgical History History of appendectomy History of heart bypass surgery History of oophorectomy History of prior ablation treatment for Afib Family History Family History Father Family history of congestive heart failure Other Asthma Cancer of spine Depression Family history of alcoholism Family history of cardiovascular disease Family history of chronic obstructive pulmonary disease Family history of malignant neoplasm Hypertension Stomach cancer Social History Social History Smoking packs per day: 2.5 Smoking cigarettes per day: 50.0 Years smoked: 15 Smoking pack-years: 37.50 Smoking status: Former smoker Tobacco type: cigarettes Second hand tobacco smoke exposure: No Smoking end date: 04/07/1960 Alcohol intake: never Substance use: never Substance use type: does not use Living arrangements: alone Gender identity (if verbalized by the patient): Female Spiritual care concerns: No Meds Home Medications and Allergies Home Medications Medication Instructions Recorded Confirmed Type albuterol sulfate 90 mcg/actuation 1 puff INHALATION Q4H PRN g 02/11/21 02/13/22 History aerosol inhaler budesonide-formoterol HFA 80 2 puff INHALATION Q12H 02/11/21 02/13/22 History mcg-4.5 mcg/actuation aerosol inhaler dabigatran etexilate 150 mg capsule 150 mg PO BID cap 02/11/21 02/13/22 History fluoxetine 40 mg capsule 80 mg PO QAM 02/11/21 02/13/22 History furosemide 40 mg tablet 40 mg PO BID tablet 02/11/21 02/13/22 History montelukast 10 mg tablet 10 mg PO HS 02/11/21 02/13/22 History nitroglycerin 0.4 mg sublingual 0.4 mg SUBLINGUAL Q5M PRN 02/11/21 02/13/22 History tablet omeprazole 20 mg capsule,delayed 20 mg PO QAM 02/11/21 02/13/22 History release pramipexole 1 mg tablet 2 mg PO BID 02/11/21 02/13/22 History pravastatin 20 mg tablet 20 mg PO HS 02/11/21 02/13/22 History aspirin 325 mg PO DAILY 08/18/21 02/13/22 History potassium chloride 20 meq PO BID 08/18/21 02/13/22 History diclofenac sodium 1 ea TOPICAL BID PRN 02/07/22 02/13/22 History Allergies Allergy/AdvReac Type Severity Reaction Status Date / Time codeine Allergy Unknown Unknown- Verified 02/07/22 11:56 A CHILD Sulfa (Sulfonamide Allergy Unknown N/V Verified 02/07/22 11:56 Antibiotics) sulfanilamide Allergy Unknown N/V Verified 02/07/22 11:56 adhesive tape AdvReac Mild BLISTERS Verified 02/07/22 11:56 spironolactone AdvReac hair loss Verified 02/07/22 11:56 Exam Const: Orientation/consciousness: patient oriented x3 Other: Well-developed, well-nourished female in no acute distress. Neck: Thyroid: thyroid normal Lymphatic: no lymphadenopathy noted (in neck, axilla or inguinal nodes) Resp: Effort & Inspection: normal respiratory effort Auscultation: clear to auscultation bilaterally Cardio: Rate: regular rate Rhythm: regular rhythm Heart sounds: S1 normal heart sound present and S2 normal heart sound present GI: Other: ABD: Soft, nontender, nondistended. No guarding or rebound tenderness. No hepatosplen
--- NOTE | 2022-02-13 07:19 | WPDHPUPDATE1 ---
History and Physical Update Update Date/Time: 02/13/22 07:19 History and Physical has been reviewed, including an updated exam of the patient. There are NO changes in the patient's condition. Risks, benefits, and alternatives have been discussed and questions answered. Patient agrees to proceed with procedure.
[2022-02-13 07:21] LABS: INR 1.1; Prothrombin Time 13.7 Seconds (11.1-14.7)
--- NOTE | 2022-02-13 07:21 | WPDHPUPDATE1 ---
History and Physical Update Update Date/Time: 02/13/22 07:21 History and Physical has been reviewed, including an updated exam of the patient. There are NO changes in the patient's condition. Risks, benefits, and alternatives have been discussed and questions answered. Patient agrees to proceed with procedure.
[2022-02-13 07:22] LABS: Partial Thromboplastin Time 30.9 SECONDS (22.3-36.8)
[2022-02-13] MEDS: ACETAMINOPHEN 500 MG TABLET 1000 MG PO (07:32)
[2022-02-13] MEDS: KETOROLAC 15 MG/ML VIAL (*BKC) IV PUSH ×2 (07:32→15:31)
[2022-02-13] MEDS: ceFAZolin 2 GM/D5W 50 ML 2 GM/50 ML BAG IVPB (07:34)
[2022-02-13] MEDS: metroNIDAZOLE 500 MG/ISO 100ML 500 MG/100 ML BAG 100 MG IVPB ×2 (07:40→14:57)
--- NOTE | 2022-02-13 09:08 | W.PM.PROC2 ---
Procedure Note - Detailed Date of Procedure 02/13/22 Pre-op Diagnosis Uterine prolapse Post-op Diagnosis Same Procedure Performed Robotic assisted supracervical hysterectomy with right salpingooophorectomy Surgeon Quinten Kevin MD Anesthesia General Findings Normal-appearing uterus, right tube and ovary. The left tube and ovary were surgically absent. Adhesions between small bowel and anterior abdominal wall. Description of Procedure The patient was taken to the operating room where general endotracheal anesthesia was administered. She was prepared and draped in the usual sterile fashion in the dorsal lithotomy position. The bladder was drained with Smalls catheter. The cervix was visualized and the anterior lip was grasped using a single-tooth tenaculum. The acorn uterine manipulator was placed. Dr. Coello then placed abdominal ports, dictated under a separate cover. She was placed in Trendelenburg position and the patient cart was docked. I assumed the console. Adhesiolysis was performed, carefully freeing the small bowel from the anterior abdominal wall. The ureters were visualized bilaterally. The round ligament on the right was divided. The infundibulopelvic ligament was divided. The broad ligament was divided, skeletonizing the uterine artery on the right. The bladder was reflected away. The left round ligament was divided and the left broad ligament was similarly dissected. After the uterine arteries had been ligated, the uterus was amputated from the cervix and the specimen placed in an endobag. Hemostasis was excellent. Dr. Coello then resumed his portion of the procedure. I was present and scrubbed through the entire procedure. Implants None Estimated Blood Loss 5 Drains Yes (smalls) Packing No Pathology Yes (Uterus, right adnexa) Complications None Condition Stable Disposition PACU
[2022-02-13] MEDS: LIDO 1%/EPINEPHRINE 1:100,000 50 ML VIAL INFILTRATE (11:16)
--- NOTE | 2022-02-13 11:37 | W.PM.PROC2 ---
Procedure Note - Detailed Date of Procedure 02/13/22 Pre-op Diagnosis incomp uterovaginal prolapse, Rectocele Cystocele Post-op Diagnosis Same Procedure Performed Robotic assisted laparoscopic sacral colpopexy Cystocele repair Rectocele repair Cystoscopy Surgeon Jose D Coello MD Anesthesia General Indications This is a woman with uterine prolapse without stress incontinence. She desires surgical correction. She is here for the above. She understands risks of bleeding, infection, diskitis, damage to surrounding organs, bowel injury, bowel obstruction, mesh related complications including exposure and extrusion, postoperative voiding dysfunction including incontinence and retention, need for ancillary procedures, dyspareunia, recurrence of prolapse, new onset stress incontinence, and other perioperative intraoperative postoperative complications. She agrees to proceed. Findings See below Description of Procedure She was correctly identified. Informed consent obtained. She from the operating room. She was given general anesthesia. She was given appropriate perioperative antibiotics. She was placed a low lithotomy position. Pressure points were padded. A time-out performed. I marked out the skin 3 fingerbreadths cephalad to the umbilicus. I anesthetized the skin. I incised the skin. I dissected down to the fascia. I grasped the fascia with Manju clamps. I entered the fascia sharply in a Jeronimo type technique. I placed sutures for later fascial closure. I placed a midline trocar. I examined the abdomen. There is no sign of any injury. Under direct vision I placed 2 additional trocars in the right upper quadrant and 2 additional trocars the left upper quadrant. She was placed in steep Trendelenburg. The robot was docked. Her alarm service technician completed their portion of the procedure. Please see that operative report for details. There is adhesions in the upper abdomen and pelvis. A lysis of adhesions was performed. Please see that operative report done by her alarm service technician. I then sat at the console. The Sizer in the vagina created plane on the anterior and posterior vaginal wall. I took great care not to injure the vagina, bladder, or rectum. There was a small hole in the posterior mid vagina from the acorn manipulator placed by the alarm service technician. I closed this in 1 layer of [id number] with a 2-0 Vicryl suture. I introduced the mesh into the abdomen. I sewed the anterior leaflet of mesh on the anterior vaginal wall. I sewed the posterior leaflet of mesh on the posterior vaginal wall. This was done with several sutures of 2 0 [place]. I did not place mesh over the area of the posterior wall where I had to over-sew the vaginotomy. I kept all mesh proximal to this. I reflected the colon laterally. I opened the posterior peritoneum over the sacral promontory. I carried this into the cul-de-sac. I freed up the edges for later retroperitonealization. I located the anterior longitudinal ligament the sacrum. I cleaned off all fatty tissues. I then tensioned my mesh appropriately. I did a vaginal exam the bedside. I assured prolapse reduction without undue tension. I then sewed the proximal leaflet of mesh onto the anterior longitudinal ligament of the sacrum with several sutures of 2 0 [place]. I then used a 2 0 Monocryl to completely and meticulously retroperitonealized all mesh. I allowed the colon to go back to its normal anatomic location. There is no sign of any impingement. The specimen was then removed. All ports removed. Fascia was tied down. Skin was closed with Monocryl and surgical glue. She was repositioned and prepped for vaginal surgery. She had a moderate degree of rectocele as well as cystocele. I placed a Victor retractor. I anesthetized the posterior vaginal wall over the rectocele. I made a midline vaginal incision. I dissected the mucosa underlying rectocele. I did this laterally and ned
[2022-02-13] MEDS: fentaNYL CITRATE INJ (*CRX) 100 MCG/2 ML VIAL 25 MCG IV PUSH ×2 (12:01→12:12)
[2022-02-13] MEDS: KCL 20 MEQ/D5/0.45% SOD CHL 1,000 ML 100 ML IV CONT (13:50)
[2022-02-13] MEDS: DOCUSATE SODIUM 100 MG CAPSULE PO (17:44)
[2022-02-13] MEDS: FLUoxetine HCL 20 MG CAPSULE 80 MG PO (17:44)
[2022-02-13] MEDS: FUROSEMIDE 40 MG TABLET PO (17:45)
[2022-02-13] MEDS: PANTOPRAZOLE 40 MG TABLET PO (17:45)
[2022-02-13] MEDS: SIMETHICONE 80 MG TAB.CHEW PO ×2 (20:12→23:06)
[2022-02-13] MEDS: MONTELUKAST SODIUM 10 MG TABLET PO (20:21)
[2022-02-13] MEDS: PRAMIPEXOLE 1 MG TABLET PO (20:23)
[2022-02-13] MEDS: FLUTICASONE/SALMETEROL 45-21 MCG INHALER 1 PUFF 2 PUFF INHALATION (20:30)
[2022-02-14] MEDS: metroNIDAZOLE 500 MG/ISO 100ML 500 MG/100 ML BAG 100 MG IVPB ×2 (00:07→09:13)
[2022-02-14 01:58] VITALS: BP 116/60; PULSE 68; RESP 16; TEMP 36.8; O2SAT 95; O2SAT 99
[2022-02-14] MEDS: SIMETHICONE 80 MG TAB.CHEW PO ×2 (03:00→14:06)
[2022-02-14] MEDS: HYDROcodone/acetaminophen (*CRX) 5-325 MG TABLET 1 TAB PO ×3 (04:12→14:05)
[2022-02-14 05:07] LABS: Estimated CRCL calculation 58 ml/min; Estimated Glomerular Filt Rate > 60
--- NOTE | 2022-02-14 06:45 | PC.NURSE ---
PT introductions made and plan of care discussed per post op web content executive surgery, pain management, daily care activities and pending discharge to home. PT received such instructions per one to one discussion, demonstrations. PT shows no barriers to learning at this time and is the sole recipient of such instructions. PT verbalized understanding of such care.
[2022-02-14 07:30] VITALS: PULSE 69; RESP 18; O2SAT 96
[2022-02-14] MEDS: KETOROLAC 15 MG/ML VIAL (*BKC) IV PUSH (07:31)
--- NOTE | 2022-02-14 08:13 | WPDANESPN ---
Anes - Prog Note Post-Op Date/Time: 02/14/22 08:13 Cardiovascular status: normal Respiratory status: normal Airway patency: baseline Mental status: baseline Post-Op hydration status: normal Vital Signs: Last Vital Signs Temp 36.8 C 02/14/22 01:58 Pulse 68 02/14/22 01:58 Resp 16 02/14/22 01:58 BP 116/60 02/14/22 01:58 Pulse Ox 99 02/14/22 01:58 Pain Score (VAS): 0 I/O: Intake & Output 02/13/22 02/14/22 02/14/22 23:59 07:59 15:59 Intake Total 770 825 Output Total 300 850 Balance 470 -25 Laboratory Tests 02/14/22 04:28 02/14/22 04:28 Creatinine 0.70 Estim Creat Clear Calc 58 Estimated GFR > 60 Post-procedural complaints: none Patient Feedback: Patient satisfied with anesthetic care.
[2022-02-14 08:25] VITALS: BP 101/51; PULSE 69; RESP 18; TEMP 36.6; O2SAT 96
--- NOTE | 2022-02-14 08:54 | PM.GYNPNOP ---
DOG DAY CARE ATTENDANT - A/P Assessment and plan (1) Uterine prolapse: Code(s): N81.4 - Uterovaginal prolapse, unspecified Status: Acute Assessment and Plan: A: POD#1, s/p robotic assisted SC Hyst / RSO, sacral colpopexy. She is doing well. P: Home to f/u 2 weeks. Postoperative Procedures: Procedures Operation Date: 02/13/22 07:30 Actual Procedure Side Surgeon p Robotic Sacrocolpopexy Not Applicable Jose D Coello MD s Robotic Assisted Supracervical Hysterectomy Right Salpingo-Oophorectomy Right Quinten Kevin MD s Cystocele and Rectocele Repair Not Applicable Jose D Coello MD Time Spent With Patient Time with patient: less than 15 minutes DOG DAY CARE ATTENDANT- PN:Subj Post-Op Subjective Date/time seen: 02/14/22 08:54 Interval history: Pain OK. Tolerating diet. Voiding. Would like to go home. Exam Narrative: AVSS I/O OK ABD soft, nontender. Incisions c/d/i. EXT nontender DOG DAY CARE ATTENDANT - PN: Obj Data Vital Signs Vital Signs: Vital Signs - 24 hr 02/13/22 11:46 02/13/22 12:01 02/13/22 12:16 Temperature 36.4 C Pulse Rate 78 70 78 Respiratory Rate 20 17 17 Blood Pressure 130/72 128/62 132/66 Pulse Oximetry 100 99 99 02/13/22 12:31 02/13/22 12:46 02/13/22 13:10 Temperature 36.5 C Pulse Rate 79 82 78 Respiratory Rate 18 15 18 Blood Pressure 129/74 118/61 126/64 Pulse Oximetry 99 95 95 02/13/22 18:45 02/14/22 01:58 Temperature 37.3 C 36.8 C Pulse Rate 76 68 Respiratory Rate 18 16 Blood Pressure 113/61 116/60 Pulse Oximetry 97 99 Intake/Output Intake/Output: Intake & Output 02/11/22 02/12/22 02/13/22 02/14/22 23:59 23:59 23:59 23:59 Intake Total 1120 825 Output Total 465 850 Balance 655 -25 Meds/Results Medications: Active Medications Generic Name Dose Route Start Last Admin Trade Name Freq PRN Reason Stop Dose Admin Acetaminophen 650 mg 02/13/22 13:01 Acetaminophen 325 Mg Tablet PO Q4H PRN Mild Pain (1-3) or Fever Hydrocodone Bitart/Acetaminophen 1 tab 02/13/22 13:01 02/14/22 04:12 Hydrocodone/Acetaminophen (*Crx) 5-325 Mg Tablet PO 1 tab Q4H PRN Administration Pain Rated 4-5 Albuterol 1 puff 02/13/22 13:01 Albuterol Sulfate (*Sp) Aerosol 1 Puff INHALATION Q4H PRN Shortness Of Breath Cephalexin HCl 500 mg 02/14/22 13:00 Cephalexin 500 Mg Capsule PO QID ROSY Diphenhydramine HCl 25 mg 02/13/22 13:01 Diphenhydramine Hcl Inj 50 Mg/Ml Vial IV PUSH Q6H PRN Itching Docusate Sodium 100 mg 02/13/22 17:00 02/13/22 17:44 Docusate Sodium 100 Mg Capsule PO 100 mg DAILY ROSY Administration Enoxaparin Sodium 30 mg 02/14/22 09:00 Enoxaparin 30 Mg/0.3 Ml Syringe SUB-Q DAILY ROSY Fluoxetine HCl 80 mg 02/13/22 17:00 02/13/22 17:44 Fluoxetine Hcl 20 Mg Capsule PO 80 mg QAM ROSY Administration Furosemide 40 mg 02/13/22 17:00 02/13/22 17:45 Furosemide 40 Mg Tablet PO 40 mg BID ROSY Administration Metronidazole 500 mg in 100 mls @ 100 mls/hr 02/13/22 15:00 02/14/22 00:07 Flagyl 500 Mg/Iso Soln 100 Ml IVPB 100 mls/hr Q8HR ROSY Administration Ketorolac Tromethamine 15 mg 02/13/22 13:01 02/14/22 07:31 Ketorolac 15 Mg/Ml Vial (*Bkc) IV PUSH 15 mg Q8H PRN Administration Pain Rated 5 or Less Miscellaneous Information 0 each 02/14/22 00:01 Recommend Lovenox 40mg Daily For Crcl Of 58 Ml/Min - Spoke With Rn 5/10 At 0722 XX 03/16/22 00:00 CLARIFY ROSY Montelukast Sodium 10 mg 02/13/22 21:00 02/13/22 20:21 Montelukast Sodium 10 Mg Tablet PO 10 mg HS ROSY Administration Morphine Sulfate 2 mg 02/13/22 13:01 Morphine Sulfate (*Crx) 2 Mg/Ml Inj IV PUSH Q2H PRN Pain Rated 6 or Greater Ondansetron HCl 4 mg 02/13/22 13:01 Ondansetron Inj 4 Mg/2 Ml Vial IV PUSH Q6H PRN Nausea And Vomiting Pantoprazole Sodium 40 mg 02/13/22 17:00 02/13/22 17:45 Pantoprazole 40 Mg Tablet PO 40 mg QAM ROYS Admini
--- NOTE | 2022-02-14 08:56 | PM.DS ---
DS: Admitting Diagnosis Discharge Date 02/14/22 Admitting Diagnosis Uterine prolapse DS: Discharge Diagnosis Discharge Diagnosis (1) Uterine prolapse: Code(s): N81.4 - Uterovaginal prolapse, unspecified Status: Acute DS: Summary Hospital Course Hospital Course: She was admitted to the hospital on the date of scheduled surgery. Please see op notes for details. She did well postoperatively and was able to go home on POD#1. DS: Data Data Completed and Pending Pending studies at discharge: Pending at discharge 02/13/22 09:08 Surgical [PTH] Routine Labs on day of discharge: Labs from last 24 hours 02/14/22 04:28 Creatinine 0.70 Estim Creat Clear Calc 58 Estimated GFR > 60 Discharge Plan Discharge Patient Disposition: Home, Self-Care Discharge Instructions: Call or return if temperature above 100.4? F, increased abdominal pain, increased vaginal bleeding or any new problems. Stand Alone Forms: General Discharge Instructions Follow-up/Referrals: Quinten Kevin MD [Physician] - 2 Weeks Discharge Medications: New hydrocodone-acetaminophen 5-325 mg tablet 1 tablet PO Q6H PRN (Reason: pain) Qty: 20 RF: 0 docusate sodium [Colace] 100 mg capsule 100 mg PO BID Qty: 60 RF: 0 Continued albuterol sulfate 90 mcg/actuation HFA aerosol inhaler 1 puff inhalation Q4H PRN (Reason: SOB) RF: 0 budesonide-formoterol 80-4.5 mcg/actuation HFA aerosol inhaler 2 puff inhalation Q12H RF: 0 fluoxetine 40 mg capsule 80 mg PO QAM RF: 0 furosemide 40 mg tablet 40 mg PO BID RF: 0 montelukast [Singulair] 10 mg tablet 10 mg PO HS RF: 0 nitroglycerin [Nitrostat] 0.4 mg tablet, sublingual 0.4 mg sublingual Q5M PRN (Reason: Chest Pain) RF: 0 omeprazole 20 mg capsule,delayed release(DR/EC) 20 mg PO QAM RF: 0 pramipexole 1 mg tablet 2 mg PO BID RF: 0 pravastatin 20 mg tablet 20 mg PO HS RF: 0 potassium chloride 10 mEq Capsule, Extended Release 20 meq PO BID RF: 0 Held dabigatran etexilate 150 mg capsule 150 mg PO BID RF: 0 Hold Instructions: Resume on 02/16/22. aspirin 325 mg Tablet 325 mg PO DAILY RF: 0 Hold Instructions: Resume on 02/15/22. diclofenac sodium 1 % gel 1 ea TOPICAL BID PRN (Reason: Pain) RF: 0 Hold Instructions: Resume on 02/15/22.
[2022-02-14] MEDS: DOCUSATE SODIUM 100 MG CAPSULE PO (09:15)
[2022-02-14] MEDS: PRAMIPEXOLE 1 MG TABLET 2 MG PO (09:17)
[2022-02-14] MEDS: FLUoxetine HCL 20 MG CAPSULE 80 MG PO (09:19)
[2022-02-14] MEDS: FUROSEMIDE 40 MG TABLET PO (09:21)
[2022-02-14] MEDS: PANTOPRAZOLE 40 MG TABLET PO (09:21)
[2022-02-14 10:39] VITALS: BP 101/51; PULSE 69; RESP 18; TEMP 36.6; O2SAT 96
[2022-02-14] MEDS: CEPHALEXIN 500 MG CAPSULE PO (14:05)
[2022-02-14] MEDS: ENOXAPARIN 40 MG/0.4 ML SYRINGE SUB-Q (14:06)
[2022-02-14] MEDS: FLUTICASONE/SALMETEROL 45-21 MCG INHALER 1 PUFF 2 PUFF INHALATION (14:08)
[2022-02-14] MEDS: PRAMIPEXOLE 1 MG TABLET PO (14:15)
--- NOTE | 2022-02-14 14:25 | PC.NURSE ---
Pt received discharge instructions per protocol and verbalized understanding of such care
--- NOTE | 2022-02-14 15:05 | PC.NURSE ---
Pt discharged to home ambulatory and taken to waiting car. follow up appts confirmed.
== END 2022-02-14 15:05 | disposition home or self-care (01) ==
LOC: ANHSURGERY 12:15 → ANHOB2 13:41
PROVIDERS: Obstetrics & Gynecology; PCP Family Medicine; Visit Provider Urology
PROC: (CPT 57425; principal; 2022-02-13 07:30)
PROC: 0UT94ZZ Resection of Uterus, Percutaneous Endoscopic Approach (ICD-10-PCS; CPT 57425; 2022-02-13 07:30)
PROC: 0JQC0ZZ Repair Pelvic Region Subcutaneous Tissue and Fascia, Open Approach (ICD-10-PCS; CPT 45560; 2022-02-13 07:30)
DX: N81.2 Incomplete uterovaginal prolapse (principal); N84.0 Polyp of corpus uteri; N80.0 Endometriosis of uterus; M19.90 Unspecified osteoarthritis, unspecified site; J45.909 Unspecified asthma, uncomplicated; M06.9 Rheumatoid arthritis, unspecified; I50.9 Heart failure, unspecified; G47.30 Sleep apnea, unspecified; Z87.891 Personal history of nicotine dependence; Z79.82 Long term (current) use of aspirin; Z79.51 Long term (current) use of inhaled steroids; E66.9 Obesity, unspecified; Z68.32 Body mass index [BMI] 32.0-32.9, adult
CPT/HCPCS: 57260; 57425; 58542; S2900 ×2; 36415; 80053; 82565; 85025; 85610; 85730; 86850; 86900; 86901; 87086; 88307; 99199; A9270; C1781; C9290; J0690; J1100; J1650; J1885; J2405; J2704; J3010; J3480; J7030; J7120